=== PATIENT | male | born 1995 | race African-American/Black ===

== ENCOUNTER → 2019-12-06 | Outpatient (CLI) | payer OTHER ==
--- NOTE | 2019-12-07 08:01 | REP ---
MRI sternum/chest wall without contrast: History: 5-year history of sternal pain and costochondritis just distal to the manubrium and over the xyphoid process. Tenderness to palpation. By history, previous CT study in 2016 showed degenerative changes at the sternomanubrial junction and irregularity and fragmentation along the inferior costal sternal junctions. No comparison imaging is available. Technique: Axial, coronal, sagittal imaging planes were utilized. T1 and T2-weighted scans were obtained with and without fat saturation. MRI findings: The medial clavicles show normal cortical and medullary bone signal intensity. The manubrial clavicular articulations are normally aligned and symmetric. No evidence of joint effusion, erosive change or marrow edema. There is mild marrow edema and subtle irregularity and hypertrophy at the manubrial sternal articulation. No presternal or retrosternal edema or swelling is seen. No bony destructive lesion is appreciated. The body of the sternum is intact. The xyphoid process is unremarkable. No abnormality is observed in the any of the anterior costal cartilages. The adjacent soft tissues are unremarkable. No mediastinal mass or adenopathy is observed. Impression: Subtle irregularity and hypertrophy at the manubrial sternal articulation with marrow edema and subtle subcortical cyst formation. Otherwise negative. Electronically Signed by Clifton Linares MD 12/07/2019 08:10 A
== END ==
LOC: M RAD 18:19
PROVIDERS: ATTEND Physician Assistant
DX: R91.8 Other nonspecific abnormal finding of lung field (principal)

== ENCOUNTER 2021-04-02 16:17 | Emergency (ER) | payer OTHER ==
[~2021-04-02] VITALS: Ht 185.4 cm; Wt 102.3 kg
[2021-04-02] MEDS ORDERED: CEPH250T PO (18:58)
[2021-04-02] MEDS ORDERED: CEPH500C PO (18:58)
[2021-04-02] MEDS ORDERED: AUGMENTIN 875 MG TAB PO ONE (20:15)
[2021-04-02] MEDS ORDERED: BOOSTRIX/ADACEL VACCINE (DIPHTH/PERTUSS/ACELL/TETANUS) 0.5ML SYR IM ONE (20:15)
[2021-04-02] MEDS ORDERED: AUGM875T28 PO (20:32)
[2021-04-02 20:46] VITALS: BP 139/95
--- NOTE | 2021-04-03 15:40 | ED PDOC ---
Post-Departure Follow-Up Called patient at 1422- discussed spoke to [facility] nurse and they had unique zabala contacted patient regarding rabies vaccination. Pt refused rabies vaccination and [facility] states pt is getting sent refusal forms. Advised patient if he is advised by [facility] to receive vaccine to return to ED. [facility] was unaware the patient knew the dog and the dog was up to date on vaccinations. Pt agreeable to plan. All questions addressed. TH spoke to Ludy SHIPLEY at [facility] at [phone]. Advised pt does not need to come in for rabies series. [facility] was unaware the dog was known and up to date of vaccinations. Patricia reports she spoke with patient this morning. Advised no additional actions needed from ED provider standpoint. SALVADOR ARORA PA-C Apr 03, 2021 15:40
== END 2021-04-02 20:53 | disposition home or self-care (01) ==
LOC: M ED 16:17
DX: Z20.3 Contact with and (suspected) exposure to rabies (principal); S60.372A Other superficial bite of left thumb, initial encounter; W54.0XXA Bitten by dog, initial encounter; Y92.018 Other place in single-family (private) house as the place of occurrence of the external cause

== ENCOUNTER → 2021-05-14 | Outpatient (CLI) | payer OTHER ==
[~2021-05-14] MED LIST: AUGM875T28 PO; CEPH250T PO; CEPH500C PO
--- NOTE | 2021-05-14 11:34 | REP ---
INDICATION: S/P SURGERY RECENTLY, HIT HAND ON WALL. COMPARISON: None. TECHNIQUE: Four views FINDINGS: The joint spaces are symmetric and relatively well maintained. There is no evidence of acute fracture or destructive osseous lesion. IMPRESSION: Negative hand. <Electronically signed by Alonso Mott > 05/14/21 [id number]
== END ==
LOC: M RAD 11:15
PROVIDERS: ATTEND Physician Assistant
DX: M25.541 Pain in joints of right hand (principal)

== ENCOUNTER → 2021-06-11 | Outpatient (CLI) | payer OTHER | LOC: M LABSMTC 14:07 | PROVIDERS: ATTEND Pediatrics | DX: Z11.52 Encounter for screening for COVID-19 (principal) ==

== ENCOUNTER 2021-12-09 01:26 | Emergency (ER) | payer OTHER ==
[~2021-12-09] VITALS: Ht 185.4 cm; Wt 102.3 kg
[2021-12-09] MEDS ORDERED: KETOROLAC 30 MG/ML 1ML VIAL IV ONE (06:30)
[2021-12-09 07:39] LABS: BASO % 0.4 % (0.0-1.0); EOS # 0.2 10^3/uL (0.0-0.5); EOS % 2.7 % (0.0-3.0); HEMATOCRIT 44.5 % (42.0-52.0); HEMOGLOBIN 14.3 g/dl (13.5-17.5); LYMPH # 1.3 10^3/uL (1.5-5.0); LYMPH % 18.9 % (24.0-44.0); MEAN CORPUSCULAR HEMOGLOBIN 28.1 pg (27.0-33.0); MEAN CORPUSCULAR HGB CONC 32.1 g/dl (32.0-36.5); MEAN CORPUSCULAR VOLUME 87.4 fl (80.0-96.0); MONO # 0.7 10^3/uL (0.0-0.8); MONO % 10.9 % (2.0-8.0); NEUTROPHILS # 4.5 10^3/uL (1.5-8.5); NEUTROPHILS % 66.8 % (36.0-66.0); PLATELET COUNT, AUTOMATED 236 10^3/uL (150-450); RED BLOOD COUNT 5.09 10^6/uL (4.30-6.10); WHITE BLOOD COUNT 6.8 10^3/uL (4.0-10.0)
[2021-12-09 08:01] LABS: BLOOD UREA NITROGEN 11 MG/DL (7-18); C REACTIVE PROTEIN QUANTITATIV 0.81 MG/DL (0.00-0.30); CALCIUM LEVEL 9.3 MG/DL (8.5-10.1); CARBON DIOXIDE LEVEL 31 MEQ/L (21-32); CHLORIDE LEVEL 103 MEQ/L (98-107); GLOMERULAR FILTRATION RATE > 60.0 (>60); GLUCOSE, FASTING 92 MG/DL (70-100); POTASSIUM SERUM 4.6 MEQ/L (3.5-5.1); SODIUM LEVEL 137 MEQ/L (136-145)
[2021-12-09 08:05] LABS: ERYTHROCYTE SEDIMENTATION RATE 5 mm/hr (0-15)
[2021-12-09] MEDS ORDERED: ISOVUE-370 76% 100ML VIAL As Ordered ONE (08:33)
[2021-12-09 10:45] VITALS: BP 159/85
== END 2021-12-09 10:47 | disposition home or self-care (01) ==
LOC: M ED 01:26
DX: R07.89 Other chest pain (principal); M25.512 Pain in left shoulder; I45.19 Other right bundle-branch block; N62 Hypertrophy of breast
CPT/HCPCS: 71046; 71275; 73030; 80048; 82550; 84484; 85025; 85379; 85652; 86140; 93005; 96374; 99284; J1885; Q9967

== ENCOUNTER → 2022-01-03 | Outpatient (CLI) | payer OTHER | LOC: M SLEEP 20:00 | PROVIDERS: ATTEND Family Medicine | DX: G47.33 Obstructive sleep apnea (adult) (pediatric) (principal) ==

== ENCOUNTER → 2022-10-13 | Outpatient (CLI) | payer OTHER | LOC: M SOG 08:11 | PROVIDERS: ATTEND Orthopaedic Surgery | DX: M79.662 Pain in left lower leg (principal); M79.661 Pain in right lower leg ==

== ENCOUNTER → 2023-06-06 | Outpatient (CLI) | payer OTHER ==
[~2023-06-06] MED LIST changes: +IBUP80TA PO; +LECI1CAP PO; +NEUR300C PO; +PERC5TAB12 PO; +ZINC50TA34 PO; +[UNRECOGNIZED DRUG - CODE] PO
[2023-06-06 13:04] LABS: BASO % 0.6 % (0.0-1.0); EOS # 0.2 10^3/uL (0.0-0.5); EOS % 4.2 % (0.0-3.0); HEMATOCRIT 42.6 % (42.0-52.0); HEMOGLOBIN 14.4 g/dl (13.5-17.5); LYMPH # 1.1 10^3/uL (1.5-5.0); MEAN CORPUSCULAR HGB CONC 33.8 g/dl (32.0-36.5); MEAN CORPUSCULAR VOLUME 85.9 fl (80.0-96.0); MONO # 0.3 10^3/uL (0.0-0.8); MONO % 9.6 % (2.0-8.0); NEUTROPHILS # 1.9 10^3/uL (1.5-8.5); NEUTROPHILS % 53.3 % (36.0-66.0); PLATELET COUNT, AUTOMATED 256 10^3/uL (150-450); RED BLOOD COUNT 4.96 10^6/uL (4.30-6.10); WHITE BLOOD COUNT 3.6 10^3/uL (4.0-10.0)
[2023-06-06 13:18] LABS: INR 0.89; PROTHROMBIN TIME 12.2 SECONDS (12.5-14.5)
[2023-06-06 13:38] LABS: BLOOD UREA NITROGEN 10 MG/DL (9-23); CALCIUM LEVEL 9.5 MG/DL (8.5-10.1); CARBON DIOXIDE LEVEL 30 MMOL/L (20-31); CHLORIDE LEVEL 104 MMOL/L (98-107); CREATININE FOR GFR 1.14 MG/DL (0.70-1.30); GLOMERULAR FILTRATION RATE > 60.0 (>60); GLUCOSE, FASTING 93 MG/DL (60-100); POTASSIUM SERUM 4.2 MMOL/L (3.5-5.1); SODIUM LEVEL 139 MMOL/L (136-145)
== END ==
LOC: M LAB 12:26
PROVIDERS: ATTEND Orthopaedic Surgery
DX: M79.A22 Nontraumatic compartment syndrome of left lower extremity (principal); M79.A21 Nontraumatic compartment syndrome of right lower extremity

== ENCOUNTER 2023-06-21 06:11 | Day surgery (SDC) | payer OTHER ==
[~2023-06-21] VITALS: Ht 185.4 cm; Wt 105.9 kg
[2023-06-21] MEDS: TRANEXAMIC ACID INJection 1,000 MG in NS 100 ML IV ONE ×2 (06:00→09:15)
[~2023-06-21 06:11] MED LIST changes: -NEUR300C PO; -PERC5TAB12 PO; +ceFAZolin SOD 2 GM in IV 1 EA IV ONE; +oxyCODONE 5MG TAB PO ONE
[2023-06-21] MEDS ORDERED: NEUR300C PO (06:39)
[2023-06-21] MEDS ORDERED: LR 1,000 ML IV SCH ×2 (06:45→09:25)
[2023-06-21] MEDS ORDERED: LIDOCAINE 2% 100MG/5ML SDV (FOR ANES.) As Ordered ONE (06:55)
[2023-06-21] MEDS ORDERED: SUGAMMADEX SODIUM 500 MG/5 ML VIAL (BRIDION) As Ordered ONE (06:55)
[2023-06-21] MEDS ORDERED: ONDANSETRON 4MG 2ML VIAL As Ordered ONE (06:55)
[2023-06-21] MEDS ORDERED: ROCURONIUM BROMIDE 50MG/5ML VIAL As Ordered ONE (06:55)
[2023-06-21] MEDS ORDERED: propofoL 200 MG/20 ML VIAL As Ordered ONE (06:55)
[2023-06-21] MEDS ORDERED: fentaNYL 250 MCG/5 ML INJECTION As Ordered ONE (06:59)
[2023-06-21] MEDS ORDERED: MIDAZOLAM INJ 2MG/2ML VIAL As Ordered ONE (07:00)
[2023-06-21] MEDS ORDERED: ACETAMINOPHEN 1000MG 100ML IV BAG As Ordered ONE (08:00)
[2023-06-21] MEDS ORDERED: dexmedeTOMIDine (4MCG/ML)200MCG/50ML BTL (PRECEDEX) As Ordered ONE (09:03)
[2023-06-21] MEDS ORDERED: TRANEXAMIC ACID 100 MG/ML 10ML VIAL As Ordered ONE (09:15)
[2023-06-21] MEDS ORDERED: HYDROMORPHONE HCL 0.5 MG/ 0.5 ML SYRINGE IV PRN (09:25)
[2023-06-21] MEDS ORDERED: ONDANSETRON 4MG 2ML VIAL IV PRN (09:25)
[2023-06-21] MEDS ORDERED: fentaNYL 100 MCG/2 ML INJECTION IV PRN (09:25)
[2023-06-21] MEDS ORDERED: oxyCODONE 5MG TAB PO PRN (09:25)
[2023-06-21] MEDS ORDERED: PERC5TAB12 PO (09:57)
[2023-06-21 11:40] VITALS: BP 152/67; TEMP 97; O2SAT 100
== END 2023-06-21 12:05 | disposition home or self-care (01) ==
LOC: M SDC 06:11
PROVIDERS: ATTEND Orthopaedic Surgery
DX: T79.7XXA Traumatic subcutaneous emphysema, initial encounter (principal); T79.A21A Traumatic compartment syndrome of right lower extremity, initial encounter; T79.A22A Traumatic compartment syndrome of left lower extremity, initial encounter; F43.10 Post-traumatic stress disorder, unspecified; F41.9 Anxiety disorder, unspecified; F32.A Depression, unspecified; R06.83 Snoring; Z79.899 Other long term (current) drug therapy
CPT/HCPCS: 27600; C9290; J0131; J0665; J0690; J1100; J2250; J2405; J3010

== ENCOUNTER 2023-08-04 13:49 | Outpatient (RCR) | payer OTHER ==
[~2023-08-04 13:49] MED LIST changes: +NEUR300C PO; +PERC5TAB12 PO; -ceFAZolin SOD 2 GM in IV 1 EA IV ONE; -oxyCODONE 5MG TAB PO ONE
== END 2023-08-30 ==
LOC: M PT 13:49
PROVIDERS: ATTEND Orthopaedic Surgery
DX: M79.A21 Nontraumatic compartment syndrome of right lower extremity (principal); M79.A22 Nontraumatic compartment syndrome of left lower extremity